=== PATIENT | female | born 1995 | race Two or more races ===

== ENCOUNTER 2016-11-11 19:53 | Emergency (ER) ==
[2016-11-11] MEDS ORDERED: SODIUM CHLORIDE 1,000 ML IV STA (20:01)
[2016-11-11 20:13] VITALS: BP 137/84; TEMP 98; BMI 34.7
[2016-11-11 20:14] LABS: BASOPHILS # (AUTO) 0.1 K/uL (0-0.2); BASOPHILS % (AUTO) 0.4 % (0.0-3.0); EOSINOPHILS # (AUTO) 0.6 K/ul (0.0-0.7); EOSINOPHILS % (AUTO) 5.3 % (0.0-7.0); HEMATOCRIT 36.7 % (37.0-47.0); HEMOGLOBIN 12.9 g/dl (12.0-16.0); IMMATURE GRANULOCYTE % (AUTO) 0.2 % (0.0-5.0); LYMPHOCYTES # (AUTO) 3.5 K/uL (0.60-3.4); LYMPHOCYTES % (AUTO) 28.8 (10.0-50.0); MEAN CORPUSCULAR HEMOGLOBIN 29.3 pg (27.0-31.0); MEAN CORPUSCULAR HGB CONC 35.1 (31.8-35.4); MEAN CORPUSCULAR VOLUME 83.4 fl (81.0-99.0); MONOCYTES # (AUTO) 0.9 K/uL (0.4-2.0); MONOCYTES % (AUTO) 7.7 (0-10); NEUTROPHILS % (AUTO) 57.6; PLATELET COUNT 235 10^3/uL (140-440); WHITE BLOOD COUNT 12.09 K/ul (4.6-10.2)
[2016-11-11 20:34] LABS: ALBUMIN 3.4 g/dL (3.4-5.0); ANION GAP 11.5; BILIRUBIN,TOTAL 0.16 mg/dL (0.00-1.20); BUN/CREATININE RATIO 11.11; CALCIUM 9.3 mg/dL (8.2-10.2); CREATININE 0.81 mg/dL (0.60-1.30); POTASSIUM 3.5 mmol/L (3.5-5.10); TOTAL PROTEIN 6.8 g/dL (6.4-8.2)
--- NOTE | 2016-11-11 21:00 | ED.PDOC ---
General ED Provider: Dr. KEVIN STEEN Chief Complaint: Nausea/Vomiting Stated Complaint: , says 12 weeks gestational, had heart burn this morning. Has vomited 5 times today. Says it had blood in it. Called her [employer] and was told to go to ER if vomiting persisted. Having heart palpatations occasional for several weeks and gets slightly short of air. Time Seen by Physician: 20:54 Mode of Arrival: Walk-In Information Source: Patient Exam Limitations: No limitations Nursing and Triage Documentation Reviewed and Agree: Yes Review of Systems - Review Of Systems Constitutional: Reports: Loss of appetite Respiratory: Reports: No symptoms Cardiac: Reports: No symptoms GI: Reports: Nausea, Vomiting : Reports: No symptoms Musculoskeletal: Reports: No symptoms Skin: Reports: No symptoms Neurological: Reports: Anxiety Endocrine: Reports: No symptoms Hematologic/Lymphatic: Reports: No symptoms All Other Systems: Reviewed and Negative Past Medical History - Past Medical History Previously Healthy: Yes Endocrine: Reports: None Cardiovascular: Reports: Hypertension Respiratory: Reports: Asthma Hematological: Reports: None Gastrointestinal: Reports: None Genitourinary: Reports: None Neuro/Psych: Reports: Anxiety Musculoskeletal: Reports: None Cancer: Reports: None Last Menstrual Period: 08/14/16 - Surgical History General Surgical History: Reports: , Tonsillectomy - Family History Family History: Reports: None - Social History Smoking Status: Never smoker Hx Substance Use: No Alcohol Screening: None - Immunizations Tetanus Shot up to Date: Yes Physical Exam - Physical Exam Appearance: Ill-appearing, Well-nourished Ill-appearing: Mild Eyes: RAEGAN, EOMI, Conjunctiva clear ENT: Ears normal, Nose normal, Oropharynx normal Respiratory: Airway patent, Breath sounds clear, Breath sounds equal, Respirations nonlabored Cardiovascular: RRR, Pulses normal, No rub, No murmur GI/: Soft, Nontender, No masses, Bowel sounds normal, No Organomegaly Musculoskeletal: Normal strength, ROM intact, No edema, No calf tenderness Skin: Warm, Dry, Normal color Neurological: Sensation intact, Motor intact, Reflexes intact, Cranial nerves intact, Alert, Oriented Psychiatric: Affect appropriate, Mood appropriate Critical Care Note - Critical Care Note Total Time (mins): 0 Course - Course Hematology/Chemistry: 11/11/16 20:13 11/11/16 20:13 Orders, Labs, Meds: Lab Review 11/11/16 20:13 WBC 12.09 H RBC 4.40 Hgb 12.9 Hct 36.7 L MCV 83.4 MCH 29.3 MCHC 35.1 RDW Coeff of Chela 12.5 Plt Count 235 Immature Gran % (Auto) 0.2 Neut % (Auto) 57.6 Lymph % (Auto) 28.8 [place] % (Auto) 7.7 Eos % (Auto) 5.3 Baso % (Auto) 0.4 Immature Gran # (Auto) 0.0 Neut # 7.0 H Lymph # 3.5 H [place] # 0.9 Eos # 0.6 Baso # 0.1 Sodium 138 Potassium 3.5 Chloride 106 Carbon Dioxide 24 Anion Gap 11.5 BUN 9 Creatinine 0.81 Estimated GFR (MDRD) 89.00 BUN/Creatinine Ratio 11.11 Glucose 93 Calcium 9.3 Total Bilirubin 0.16 AST 14 L ALT 16 Alkaline Phosphatase 53 Total Protein 6.8 Albumin 3.4 Globulin 3.4 Albumin/Globulin Ratio 1.00 Orders Category Date Time Status EKG-(ED ONLY) Stat CARDIO 11/11/16 21:12 Completed ED IV/MEDIPORT/POWERPORT .ONCE EMERGENCY 11/11/16 20:01 Active CBC W/ AUTO DIFF Stat LAB 11/11/16 20:13 Completed COMPREHENSIVE METABOLIC PANEL Stat LAB 11/11/16 20:13 Completed 0.9 % Sodium Chloride [Saline Flush] MEDS 11/11/16 20:01 Discontinued 1 syr IVF PRN PRN Sodium Chloride 0.9% [Sodium Chloride] 1,000 ml MEDS 11/11/16 20:01 Discontinued IV BOLUS Medications Discontinued Medications Generic Name Dose Route Start Last Admin Trade Name Freq PRN Reason Stop Dose Admin Sodium Chloride 1,000 mls @ 1,000 mls/hr 11/11/16 20:01 11/11/16 20:31 Sodium Chloride IV 11/11/16 21:00 1,000 mls/hr BOLUS STA Administration Sodium Chloride 1 syr 11/11/16 20:01 11/11/16 20:31 Saline Flush IVF 1 syr PRN PRN Administration To flush IV Vital Signs: Temp Pulse Resp BP Pulse Ox 11/11/16 19:54 98 F 75 20 137/84 99 Departure - Departure Time of Disposition: 21:53 Disposition: HOME SELF-CARE Discharge Problem: Gastritis Instructions: Gastritis (ED) Condition: Fair Pt referred to PMD for follow-up: Yes Additional Instructions: Follow up with your OBGYN in the morning push fluids Allergies/Adverse Reactions: Allergies No Known Allergies Allergy (Unverified 11/11/16 20:02) Home Medications: Ambulatory Orders Albuterol Sulfate [Proair Hfa] 2 puff INH Q4H PRN 11/11/16 Budesonide/Formoterol Fumarate [Symbicort 160-4.5 Mcg Inhaler] 2 puff IH BID Pnv No.95/Ferrous Fum/Folic AC [ Multivitamin Tablet] 1 tab PO DAILY Disposition Discussed With: Patient
== END 2016-11-11 21:59 | disposition home or self-care (01) ==
LOC: ED 19:53
DX: K29.70 Gastritis, unspecified, without bleeding (principal); Z33.1 Pregnant state, incidental
CPT/HCPCS: 36415; 80053; 85025; 93005; 93010; 96360; 99283; 99284

== ENCOUNTER 2017-02-10 08:43 | Emergency (ER) ==
[2017-02-10 08:50] VITALS: BP 111/70; TEMP 98.1; BMI 34.8
[2017-02-10 09:12] LABS: BASOPHILS # (AUTO) 0.1 K/uL (0-0.2); BASOPHILS % (AUTO) 0.5 % (0.0-3.0); EOSINOPHILS # (AUTO) 0.5 K/ul (0.0-0.7); EOSINOPHILS % (AUTO) 4.1 % (0.0-7.0); HEMATOCRIT 32.5 % (37.0-47.0); HEMOGLOBIN 11.2 g/dl (12.0-16.0); IMMATURE GRANULOCYTE % (AUTO) 0.5 % (0.0-5.0); LYMPHOCYTES # (AUTO) 2.1 K/uL (0.60-3.4); LYMPHOCYTES % (AUTO) 17.3 (10.0-50.0); MEAN CORPUSCULAR HEMOGLOBIN 29.9 pg (27.0-31.0); MEAN CORPUSCULAR HGB CONC 34.5 (31.8-35.4); MEAN CORPUSCULAR VOLUME 86.7 fl (81.0-99.0); MONOCYTES # (AUTO) 0.7 K/uL (0.4-2.0); MONOCYTES % (AUTO) 5.8 (0-10); NEUTROPHILS # (AUTO) 8.7 K/ul (2.0-6.9); NEUTROPHILS % (AUTO) 71.8; PLATELET COUNT 210 10^3/uL (140-440); RED BLOOD COUNT 3.75 10^6/ul (4.20-5.40); WHITE BLOOD COUNT 12.16 K/ul (4.6-10.2)
[2017-02-10 09:22] LABS: BILIRUBIN,URINE Negative (NEGATIVE); KETONES,URINE Negative (NEGATIVE); LEUKOCYTE ESTERASE ,URINE Trace (NEGATIVE); NITRITE,URINE Negative (NEGATIVE); PH,URINE 7.5 (5-9); PROTEIN,URINE Negative (NEGATIVE); URINE, BLOOD Negative (NEGATIVE)
[2017-02-10 09:30] LABS: ADD URINE MICROSCOPIC YES
[2017-02-10 09:31] LABS: BACTERIA,URINE 1+ (NOT PRESENT)
[2017-02-10 09:38] LABS: ALANINE AMINOTRANSFERASE 10 U/L (12-78); ALBUMIN 2.9 g/dL (3.4-5.0); ALBUMIN/GLOBULIN RATIO 0.76; ALKALINE PHOSPHATASE 57 U/L (42-98); ANION GAP 9.7; ASPARTATE AMINO TRANSFERASE 10 U/L (15-37); BILIRUBIN,TOTAL 0.21 mg/dL (0.00-1.20); BLOOD UREA NITROGEN 7 mg/dL (7-18); BUN/CREATININE RATIO 8.97; CARBON DIOXIDE 24 mmol/L (21-32); CHLORIDE 108 mmol/L (98-107); CREATINE KINASE 46 U/L; CREATININE 0.78 mg/dL (0.60-1.30); GLUCOSE 84 mg/dL (70-110); POTASSIUM 3.7 mmol/L (3.5-5.10); SODIUM 138 mmol/L (136-145); TOTAL PROTEIN 6.7 g/dL (6.4-8.2)
[2017-02-10 09:40] LABS: COCAIN SCREEN,URINE NEGATIVE (NEGATIVE)
[2017-02-10 09:42] LABS: FLU INTERNAL QC INTERNAL QC VALID; RAPID FLU A NEGATIVE (NEGATIVE); RAPID FLU B NEGATIVE (NEGATIVE)
--- NOTE | 2017-02-10 09:59 | US ---
EXAM: Ultrasound obstetrical limited. HISTORY: . Abdominal pain. COMPARISON: None available. TECHNIQUE: Treadwell-scale and color Doppler images. FINDINGS: There is a single live intrauterine gestation in cephalic position. The placenta is located posterio rly. The cervix is not well seen. heart rate was recorded at 151 beats per minute. Estimated sonographic age is 24 weeks 4 days, based on the following: Biparietal diameter 6.17 cm, 25 weeks. Head circumference 22.5 cm, 24 weeks 4 days. Abdominal circumference 19.5 cm, 24 weeks 1 day. Femur length 4.4 cm, 24 weeks 3 days. Estimated weight is 687 grams. Amniotic fluid index measures 13.53 cm. The four-chamber heart, stomach, kidneys, bladder were all seen without gross abnormality. IMPRESSION: Single live intrauterine gestation in cephalic position with estimated sonographic age 24 weeks 2 day s, with estimated date of delivery 05/31/2017 based on outside dating. Today's measurements are in g ood agreement.
--- NOTE | 2017-02-10 10:11 | ED.PDOC ---
General ED Provider: Dr. SHAYAN BLANTON Chief Complaint: Non-specific Complaint Stated Complaint: abdominal pain, back pain Time Seen by Physician: 09:00 (seen with lucia) Mode of Arrival: Wheelchair Information Source: Patient Exam Limitations: No limitations Nursing and Triage Documentation Reviewed and Agree: Yes GI Complaint Exam - Abdominal Pain Complaint/Exam Onset: Gradual Duration: 1 day Symptoms Are: Still present Timing: Intermittent Initial Severity: Mild Current Severity: Mild Location of Pain: Diffuse Radiates To: Reports: Back Character: Reports: Dull Aggravating: Reports: None Alleviating: Reports: None Associated Signs and Symptoms: Denies: Diaphoresis, Fever, Cough, Chest pain, Dizziness, Back pain, Constipation, Blood in stool, Dysuria, Urinary frequency, Decreased urine output, Decreased appetite, Vaginal bleeding, Vaginal discharge , Nausea, Vomiting, Diarrhea, Sore throat, Decreased activity Related History: Reports: Similar episode AAA Risk Factors: Reports: None Cardiac Risk Factors: Reports: None Ectopic Risk Factors: Reports: None Ovarian Torsion Risk Factors: Reports: None Surgical Obstruction Risk Factors: Reports: None Review of Systems - Review Of Systems Constitutional: Reports: No symptoms Eyes: Reports: No symptoms Ears, Nose, Mouth, Throat: Reports: No symptoms Respiratory: Reports: No symptoms Cardiac: Reports: No symptoms GI: Reports: Abdominal pain : Reports: No symptoms Musculoskeletal: Reports: Back pain Skin: Reports: No symptoms Neurological: Reports: No symptoms Endocrine: Reports: No symptoms Hematologic/Lymphatic: Reports: No symptoms All Other Systems: Reviewed and Negative Past Medical History - Past Medical History Previously Healthy: Yes Endocrine: Reports: None Cardiovascular: Reports: Hypertension Respiratory: Reports: Asthma Hematological: Reports: None Gastrointestinal: Reports: None Genitourinary: Reports: None Neuro/Psych: Reports: Anxiety Musculoskeletal: Reports: None Cancer: Reports: None Last Menstrual Period: 25 weeks preg. - Surgical History General Surgical History: Reports: , Tonsillectomy - Family History Family History: Reports: None - Social History Smoking Status: Never smoker Hx Substance Use: No Alcohol Screening: None Physical Exam - Physical Exam Appearance: Well-appearing, No pain distress, Well-nourished Eyes: RAEGAN, EOMI, Conjunctiva clear ENT: Ears normal, Nose normal, Oropharynx normal Respiratory: Airway patent, Breath sounds clear, Breath sounds equal, Respirations nonlabored Cardiovascular: RRR, Pulses normal, No rub, No murmur GI/: Soft, Nontender, No masses, Bowel sounds normal, No Organomegaly Musculoskeletal: Normal strength, ROM intact, No edema, No calf tenderness Skin: Warm, Dry, Normal color Neurological: Sensation intact, Motor intact, Reflexes intact, Cranial nerves intact, Alert, Oriented Psychiatric: Affect appropriate, Mood appropriate Critical Care Note - Critical Care Note Total Time (mins): 0 Course - Course Hematology/Chemistry: 02/10/17 09:05 02/10/17 09:05 Orders, Labs, Meds: Lab Review 02/10/17 02/10/17 02/10/17 09:05 09:05 09:05 WBC 12.16 H RBC 3.75 L Hgb 11.2 L Hct 32.5 L MCV 86.7 MCH 29.9 MCHC 34.5 RDW Coeff of Chela 13.1 Plt Count 210 Immature Gran % (Auto) 0.5 Neut % (Auto) 71.8 Lymph % (Auto) 17.3 [place] % (Auto) 5.8 Eos % (Auto) 4.1 Baso % (Auto) 0.5 Immature Gran # (Auto) 0.1 Neut # 8.7 H Lymph # 2.1 [place] # 0.7 Eos # 0.5 Baso # 0.1 Sodium 138 Potassium 3.7 Chloride 108 H Carbon Dioxide 24 Anion Gap 9.7 BUN 7 Creatinine 0.78 Estimated GFR (MDRD) 92.00 BUN/Creatinine Ratio 8.97 Glucose 84 Calcium 9.0 Total Bilirubin 0.21 AST 10 L ALT 10 L Alkaline Phosphatase 57 Total Creatine Kinase 46 Troponin I < 0.0100 Total Protein 6.7 Albumin 2.9 L Globulin 3.8 Albumin/Globulin Ratio 0.76 Urine Color Yellow Urine Clarity Clear Urine pH 7.5 Ur Specific [place] 1.020 Urine Protein Negative Urine Glucose (UA) Negative Urine Ketones Negative Urine Blood Negative Urine Nitrite Negative Urine Bilirubin Negative Urine Urobilinogen 0.2 Ur Leukocyte Esterase Trace Urine Microscopic WBC 2-5 Ur Squamous Epith Cells 5-10 Urine Bacteria 1+ Urine Mucus 1+ Urine Opiates Screen Ur Oxycodone Screen Urine Methadone Screen Ur Propoxyphene Screen Ur Barbiturates Screen U Tricyclic Antidepress Ur Phencyclidine Scrn Ur Amphetamine Screen U Methamphetamines Scrn U Benzodiazepines Scrn Urine Cocaine Screen U Cannabinoids Screen Influenza A (Rapid) Influenza B (Rapid) 02/10/17 02/10/17 09:05 09:05 WBC RBC Hgb Hct MCV MCH MCHC RDW Coeff of Chela Plt Count Immature Gran % (Auto) Neut % (Auto) Lymph % (Auto) [place] % (Auto) Eos % (Auto) Baso % (Auto) Immature Gran # (Auto) Neut # Lymph # [place] # Eos # Baso # Sodium Potassium Chloride Carbon Dioxide Anion Gap BUN Creatinine Estimated GFR (MDRD) BUN/Creatinine Ratio Glucose Calcium Total Bilirubin AST ALT Alkaline Phosphatase Total Creatine Kinase Troponin I Total Protein Albumin Globulin Albumin/Globulin Ratio Urine Color Urine Clarity Urine pH Ur Specific [place] Urine Protein Urine Glucose (UA) Urine Ketones Urine Blood Urine Nitrite Urine Bilirubin Urine Urobilinogen Ur Leukocyte Esterase Urine Microscopic WBC Ur Squamous Epith Cells Urine Bacteria Urine Mucus Urine Opiates Screen Negative Ur Oxycodone Screen Negative Urine Methadone Screen Negative Ur Propoxyphene Screen Negative Ur Barbiturates Screen Negative U Tricyclic Antidepress Negative Ur Phencyclidine Scrn Negative Ur Amphetamine Screen Negative U Methamphetamines Scrn Negative U Benzodiazepines Scrn Negative Urine Cocaine Screen Negative U Cannabinoids Screen Negative Influenza A (Rapid) Negative Influenza B (Rapid) Negative Orders Category Date Time Status EKG-(ED ONLY) Stat CARDIO 02/10/17 09:01 Completed CBC W/ AUTO DIFF Stat LAB 02/10/17 09:05 Completed COMPREHENSIVE METABOLIC PANEL Stat LAB 02/10/17 09:05 Completed CREATINE KINASE Stat LAB 02/10/17 09:05 Completed MOLECULAR GROUP A STREP Stat LAB 02/10/17 09:05 Results RAPID FLU A/B Stat LAB 02/10/17 09:05 Completed STREP SCREEN Stat LAB 02/10/17 09:05 Results TROPONIN I Stat LAB 02/10/17 09:05 Completed URINALYSIS C & S IF INDICATED Stat LAB 02/10/17 09:05 Completed URINE DRUG SCREEN (RAPID FOR ED) [DRUG SCREEN, URINE, LAB 02/10/17 09:05 Completed RAPID] Stat U/S OB/TA LIMITED Stat RADS 02/10/17 09:02 Completed Vital Signs: Temp Pulse Resp BP Pulse Ox 02/10/17 08:47 98.1 F 84 16 111/70 98 Departure - Departure Time of Disposition: 10:10 Disposition: HOME SELF-CARE Discharge Problem: Abdominal pain Instructions: Abdominal Pain (ED) Condition: Good Pt referred to PMD for follow-up: Yes Additional Instructions: Please call your Family Physician as soon as possible to schedule a follow-up appointment. Allergies/Adverse Reactions: Allergies No Known Allergies Allergy (Verified 02/10/17 08:52) Home Medications: Ambulatory Orders Budesonide/Formoterol Fumarate [Symbicort 160-4.5 Mcg Inhaler] 2 puff IH BID Pnv No.95/Ferrous Fum/Folic AC [ Multivitamin Tablet] 1 tab PO DAILY
== END 2017-02-10 10:28 | disposition home or self-care (01) ==
LOC: ED 08:43
DX: R10.9 Unspecified abdominal pain (principal); M54.9 Dorsalgia, unspecified; Z33.1 Pregnant state, incidental
CPT/HCPCS: 36415; 80053; 80306; 81001; 82550; 84484; 85025; 87651; 87804; 87880; 93005; 93010; 99283

== ENCOUNTER 2017-06-09 19:42 | Emergency (ER) ==
[2017-06-09 19:50] VITALS: BP 117/78; TEMP 99; BMI 34.7
--- NOTE | 2017-06-09 20:05 | ED.PDOC ---
General ED Provider: Dr. KEVIN STEEN Chief Complaint: Abdominal Pain Stated Complaint: Patient is a 21 year old female who comes to the ER and states that 4 weeks ago she had a . Then was seen on 06/03/17 by her OBGYN and was released. Patient states that she has lower abdominal pain that radiates down her legs and back. Time Seen by Physician: 20:03 Mode of Arrival: Walk-In Information Source: Patient Exam Limitations: No limitations Primary Care Provider: DARLENE PALOMINO Nursing and Triage Documentation Reviewed and Agree: Yes Reviewed sepsis parameters & appropriate labs ordered?: Yes System Inflammatory Response Syndrome: Not Applicable Sepsis Protocol: For patient's 13 years and over: Temp is 96.8 and below OR 101 and greater Pulse >90 BPM Resp >20/minute Acutely Altered Mental Status Are patient's symptoms suggestive of a new infection, such as: -Pneumonia -Skin, Soft Tissue -Endocarditis -UTI -Bone, Joint Infection -Implantable Device -Acute Abdominal Infection -Wound Infection -Meningitis -Blood Stream Catheter Infection -Unknown System Inflammatory Response Syndrome: Not Applicable GI Complaint Exam - Abdominal Pain Complaint/Exam Onset: Gradual Duration: 1 day Symptoms Are: Still present Timing: Constant Initial Severity: Moderate Current Severity: Severe Location of Pain: Suprapubic (Incision site) Radiates To: Denies: Chest, Back, Flank, LLQ, RLQ, Inguinal Character: Reports: Aching, Throbbing Aggravating: Reports: Position Alleviating: Denies: Rest, Position, Vomiting, Bowel movement, OTC analgesics Associated Signs and Symptoms: Denies: Diaphoresis, Fever, Cough, Chest pain, Dizziness, Back pain, Constipation, Blood in stool, Dysuria, Urinary frequency, Decreased urine output, Decreased appetite, Vaginal bleeding, Vaginal discharge , Nausea, Vomiting, Diarrhea, Sore throat, Decreased activity AAA Risk Factors: Reports: None Cardiac Risk Factors: Reports: None Ectopic Risk Factors: Reports: None Ovarian Torsion Risk Factors: Reports: None Patient Rh Status: Unknown Abdominal Findings: Absent: Pulsatile mass, Rebound tenderness (but tenderness on the surgical scar with no signs of fluctuate mass or cellulitis.), Hernia Differential Diagnoses: UTI, Other (abscesss) Review of Systems - Review Of Systems Constitutional: Reports: No symptoms Eyes: Reports: No symptoms Ears, Nose, Mouth, Throat: Reports: No symptoms Respiratory: Reports: No symptoms Cardiac: Reports: No symptoms GI: Reports: Abdominal pain : Reports: No symptoms Musculoskeletal: Reports: Joint pain, Muscle pain Skin: Reports: No symptoms Neurological: Reports: Anxiety Endocrine: Reports: No symptoms Hematologic/Lymphatic: Reports: No symptoms All Other Systems: Reviewed and Negative Past Medical History - Past Medical History Previously Healthy: Yes Endocrine: Reports: None Cardiovascular: Reports: Hypertension Respiratory: Reports: Asthma Hematological: Reports: None Gastrointestinal: Reports: None Genitourinary: Reports: None Neuro/Psych: Reports: Anxiety Musculoskeletal: Reports: None Cancer: Reports: None Last Menstrual Period: POST - Surgical History General Surgical History: Reports: , Tonsillectomy - Family History Family History: Reports: None - Social History Smoking Status: Never smoker Hx Substance Use: No Alcohol Screening: None - Immunizations Tetanus Shot up to Date: No Physical Exam - Physical Exam Appearance: Ill-appearing Ill-appearing: Mild Pain Distress: Moderate Neck: Supple Respiratory: Airway patent, Breath sounds clear, Breath sounds equal, Respirations nonlabored Cardiovascular: RRR, Pulses normal, No rub, No murmur GI/: Soft, No masses, Bowel sounds normal, No Organomegaly, Tender ( suprapubic area ) Musculoskeletal: Normal strength Skin: Warm, Dry Neurological: Sensation intact, Alert, Oriented Psychiatric: Anxious Critical Care Note - Critical Care Note Total Time (mins): 0 Course - Course Hematology/Chemistry: 06/09/17 20:16 06/09/17 20:16 Orders, Labs, Meds: Lab Review 06/09/17 06/09/17 06/09/17 20:16 20:16 20:16 WBC 13.67 H RBC 3.98 L Hgb 11.4 L Hct 33.7 L MCV 84.7 MCH 28.6 MCHC 33.8 RDW Coeff of Chela 13.2 Plt Count 204 Immature Gran % (Auto) 0.3 Neut % (Auto) 59.7 Lymph % (Auto) 21.6 [place] % (Auto) 11.4 H Eos % (Auto) 6.6 Baso % (Auto) 0.4 Immature Gran # (Auto) 0.0 Neut # (Auto) 8.2 H Lymph # (Auto) 3.0 [place] # (Auto) 1.6 Eos # (Auto) 0.9 H Baso # (Auto) 0.1 Sodium 143 Potassium 3.5 Chloride 107 Carbon Dioxide 26 Anion Gap 13.5 BUN 17 Creatinine 0.84 Estimated GFR (MDRD) 85.00 BUN/Creatinine Ratio 20.23 Glucose 109 Calcium 9.0 Total Bilirubin 0.4 AST 24 ALT 44 Alkaline Phosphatase 83 Total Protein 7.0 Albumin 3.5 Globulin 3.5 Albumin/Globulin Ratio 1.00 Amylase 45 Lipase 13 Serum , Qual Negative Urine Color Urine Clarity Urine pH Ur Specific [place] Urine Protein Urine Glucose (UA) Urine Ketones Urine Blood Urine Nitrite Urine Bilirubin Urine Urobilinogen Ur Leukocyte Esterase Urine Microscopic WBC Ur Squamous Epith Cells Urine Bacteria Urine Mucus 06/09/17 20:26 WBC RBC Hgb Hct MCV MCH MCHC RDW Coeff of Chela Plt Count Immature Gran % (Auto) Neut % (Auto) Lymph % (Auto) [place] % (Auto) Eos % (Auto) Baso % (Auto) Immature Gran # (Auto) Neut # (Auto) Lymph # (Auto) [place] # (Auto) Eos # (Auto) Baso # (Auto) Sodium Potassium Chloride Carbon Dioxide Anion Gap BUN Creatinine Estimated GFR (MDRD) BUN/Creatinine Ratio Glucose Calcium Total Bilirubin AST ALT Alkaline Phosphatase Total Protein Albumin Globulin Albumin/Globulin Ratio Amylase Lipase Serum , Qual Urine Color Yellow Urine Clarity Slightly Urine pH 7.0 Ur Specific [place] 1.025 Urine Protein Trace Urine Glucose (UA) Negative Urine Ketones Trace Urine Blood Negative Urine Nitrite Negative Urine Bilirubin Negative Urine Urobilinogen 2.0 Ur Leukocyte Esterase Trace Urine Microscopic WBC 5-10 Ur Squamous Epith Cells 5-10 Urine Bacteria Trace Urine Mucus 1+ Orders Category Date Time Status AMYLASE Stat LAB 06/09/17 20:16 Completed CBC W/ AUTO DIFF Stat LAB 06/09/17 20:16 Completed COMPREHENSIVE METABOLIC PANEL Stat LAB 06/09/17 20:16 Completed LIPASE Stat LAB 06/09/17 20:16 Completed SERUM Stat LAB 06/09/17 20:16 Completed URINALYSIS C & S IF INDICATED Stat LAB 06/09/17 20:26 Completed URINE CULTURE Stat LAB 06/09/17 20:43 Completed Clindamycin HCl [Cleocin] MEDS 06/09/17 21:59 Discontinued 300 mg PO ONCE STA Ketorolac Tromethamine [Toradol] MEDS 06/09/17 20:13 Discontinued 60 mg IM ONCE STA CT ABD/PEL WO RENAL STONE PROT Stat RADS 06/09/17 20:06 Completed Medications Discontinued Medications Generic Name Dose Route Start Last Admin Trade Name Freq PRN Reason Stop Dose Admin Clindamycin HCl 300 mg 06/09/17 21:59 06/09/17 22:06 Cleocin PO 06/09/17 22:00 300 mg ONCE STA Administration Ketorolac Tromethamine 60 mg 06/09/17 20:13 06/09/17 20:20 Toradol IM 06/09/17 20:14 60 mg ONCE STA Administration Vital Signs: Temp Pulse Resp BP Pulse Ox 06/09/17 19:43 99.0 F 95 H 18 117/78 98 Departure - Departure Time of Disposition: 21:52 Disposition: HOME SELF-CARE Discharge Problem: Abdominal pain Instructions: Acute Abdominal Pain (ED) Condition: Fair Pt referred to PMD for follow-up: Yes IPMP verified?: No Additional Instructions: Take medications as prescribed Follow up with OBGYN that did your C section Prescriptions: Clindamycin HCl 300 mg PO TID #30 capsule Ibuprofen [Motrin] 600 mg PO Q6H PRN #30 tablet PRN Reason: Analgesia Allergies/Adverse Reactions: Allergies No Known Allergies Allergy (Verified 06/09/17 19:49) Home Medications: Ambulatory Orders Budesonide/Formoterol Fumarate [Symbicort 160-4.5 Mcg Inhaler] 2 puff IH BID Pnv No.95/Ferrous Fum/Folic AC [ Multivitamin Tablet] 1 tab PO DAILY Clindamycin HCl 300 mg PO TID #30 capsule 06/09/17 Ibuprofen [Motrin] 600 mg PO Q6H PRN #30 tablet 06/09/17 Disposition Discussed With: Patient
[2017-06-09] MEDS: TORADOL IM STA (20:20)
[2017-06-09] MEDS: CLEOCIN PO STA (22:06)
--- NOTE | 2017-06-09 22:24 | CT ---
EXAM: CT scan abdomen pelvis without contrast HISTORY: Abdominal pain COMPARISON: None. FINDINGS: Contiguous axial images obtained from the lung bases to the symphysis pubis without contra st utilizing 3-mm collimation. Sagittal and coronal reconstructions were imaged and reviewed.. The visualized lung bases are clear. The gallbladder is fluid filled without cholelithiasis. The liver, pancreas, spleen and adrenal glands have normal unenhanced CT appearance. The abdominal aorta is no rmal in course and caliber. The kidneys are morphologically normal. There is scattered subcentimete r periaortic and mesenteric lymph nodes. There is normal appendix. There is diastases of the rectus musculature within the lower abdomen and pelvis with herniation of a small loop between the rectus m usculature without incarceration. Thickening of the rectus sheath inferiorly left greater than right suggest small rectus sheath hematomas. Overlying subcutaneous stranding is noted likely relating t o recent to delivery. There is no free fluid. There is a helical hernia containing only fat.. Bone windows reveals no evidence of lytic or blastic lesions. IMPRESSION: Normal-appearing visceral organs. Nonspecific subcentimeter retroperitoneal and mesenteric lymph nodes. Diastases of the rectus musculature with non-incarcerated small bowel extending through the defect Small bilateral rectus sheath hematomas
== END 2017-06-09 22:28 | disposition home or self-care (01) ==
LOC: ED 19:42
DX: R10.30 Lower abdominal pain, unspecified (principal); Z98.890 Other specified postprocedural states
CPT/HCPCS: 36415; 74176; 80053; 81001; 82150; 83690; 84703; 85025; 87086; 96372; 99283